=== PATIENT | female | born 1985 | race Two or more races ===

== ENCOUNTER 2024-12-25 09:05 | Day surgery (SDC) | payer MEDICAID, SELFPAY ==
[2024-12-24 12:19] LABS: HCG Qualitative,Urine Negative
[2024-12-25] VITALS (10 sets, daily range): BP systolic 103–129; BP diastolic 67–101; PULSE 72–85; RESP 13–20; TEMP 36.5–36.7; O2SAT 94–100; BMI 28.9
[2024-12-25] MEDS: SODIUM CHLORIDE 0.9% 500 ML 500 ML 20 ML IV (10:33)
[2024-12-25] MEDS: BENZOCAINE 20% (Hurricaine) SPRAY 1 DOSE TOP (10:33)
[2024-12-25] MEDS: DiphenhydrAMINE INJ 50 MG/ML VIAL 25 MG IV (10:39)
[2024-12-25] MEDS: MIDAZOLAM INJ 1 MG/ML VIAL 2 ML (ASD USE ONLY) 2 MG IV (10:50)
[2024-12-25] MEDS: fentaNYL CIT INJ 50 mCg/ML AMP 2ML (ASD USE ONLY) IV (10:50)
== END 2024-12-25 11:50 | disposition home or self-care (01) ==
PROVIDERS: PCP Family Medicine; Referring Provider Internal Medicine Gastroenterology; Visit Provider Internal Medicine Gastroenterology
PROC: (CPT 43239; principal; 2024-12-25 10:15)
DX: K22.2 Esophageal obstruction (principal); K29.80 Duodenitis without bleeding; K29.50 Unspecified chronic gastritis without bleeding; K20.90 Esophagitis, unspecified without bleeding; K31.89 Other diseases of stomach and duodenum
CPT/HCPCS: 43249; 43239; 81025; A4649; C1725; J1200; J2250; J3010; J7040; A9270